=== PATIENT | female | born 1955 | race Caucasian/White ===

== ENCOUNTER 2024-07-31 20:39 | Observation (INO) | payer MEDICARE ==
[2024-07-31 21:24] LABS: Basophils % (A) 1 %; Eosinophils # (A) 0.2 k/uL (0-0.7); Eosinophils % (A) 3 %; HCT 46.3 % (34.0-46.0); HGB 14.5 gm/dL (11.4-16.0); Lymphocytes # (A) 2.3 k/uL (1.0-4.8); Lymphocytes % (A) 36 %; MCH 30.5 pg (25.0-35.0); MCHC 31.3 g/dL (31.0-37.0); MCV 97.3 fL (80.0-100.0); Mean Platelet Volume 8.8; Monocytes # (A) 0.4 k/uL (0-1.0); Monocytes % (A) 7 %; Neutrophils # (A) 3.3 k/uL (1.3-7.7); Neutrophils % (A) 52 %; Platelet Count 209 k/uL (150-450); RBC 4.76 m/uL (3.80-5.40); RDW 13.4 % (11.5-15.5); WBC 6.3 k/uL (3.8-10.6)
[2024-07-31 21:34] LABS: ALT 20 U/L (4-34); AST 27 U/L (14-36); African American GFR (CKD) >90 (>60 ml/min/1.73 sqM); Albumin 3.9 g/dL (3.5-5.0); Alkaline Phosphatase 93 U/L (38-126); Anion Gap 7 mmol/L; Blood Urea Nitrogen 26 mg/dL (7-17); Calcium 9.8 mg/dL (8.4-10.2); Carbon Dioxide 27 mmol/L (22-30); Chloride 103 mmol/L (98-107); Glucose 78 mg/dL (74-99); Non-African American GFR(CKD) >90 (>60 ml/min/1.73 sqM); Potassium 4.2 mmol/L (3.5-5.1); Sodium 137 mmol/L (137-145); Total Bilirubin 0.6 mg/dL (0.2-1.3); Total Protein 6.8 g/dL (6.3-8.2)
[2024-07-31 21:42] LABS: NT-Pro-B-Type Natriuretic Pept 149 pg/mL
[2024-07-31] MEDS ORDERED: VANCOMYCIN IV PER PHARMACY 1 EACH MISC MISCELLANE PRN (21:43)
[2024-07-31] MEDS: ACETAMINOPHEN TAB 500 MG TAB PO STA (22:04)
[2024-07-31] MEDS: FUROSEMIDE 10 MG/ML 4 ML VIAL IV STA (22:38)
[2024-07-31] MEDS: VANCOMYCIN 1,000 MG in SODIUM CHLORIDE 0.9% 250 ML IVPB ONE (22:58)
--- NOTE | 2024-07-31 23:16 | ED ---
General Adult HPI - General Chief complaint: Extremity Injury, Lower Stated complaint: Cellulitis Time Seen by Provider: 07/31/24 20:52 Source: EMS Mode of arrival: EMS - History of Present Illness Initial comments: 68-year-old female presenting with chief complaint of infection to the lower extremities. Patient reports that for the last 5 days she has had increased redness, tenderness, and swelling to the bilateral lower extremities. She has an in-home patient educator who is supposed to be seeing her weekly. She reports that she was recently on 2 antibiotics for osteomyelitis. She has not seen her patient educator since finishing the antibiotics, family was concerned so they brought her to the ER today. No fever. No vomiting. No discharge or weeping. The right foot is particularly painful. - Related Data Allergies Allergy/AdvReac Type Severity Reaction Status Date / Time Penicillins Allergy Nausea Verified 07/31/24 20:50 Review of Systems ROS Statement: Those systems with pertinent positive or pertinent negative responses have been documented in the HPI. ROS Other: All systems not noted in ROS Statement are negative. Past Medical History Past Medical History: Hypertension, Osteoarthritis (OA), Rheumatoid Arthritis (RA) History of Any Multi-Drug Resistant Organisms: None Reported Past Surgical History: Appendectomy Past Psychological History: No Psychological Hx Reported Smoking Status: Current every day smoker Past Alcohol Use History: None Reported Past Drug Use History: None Reported General Exam General appearance: alert, in no apparent distress Head exam: Present: atraumatic, normocephalic, normal inspection Eye exam: Present: normal appearance, EOMI Neck exam: Present: normal inspection. Absent: meningismus Respiratory exam: Present: normal lung sounds bilaterally. Absent: respiratory distress, wheezes, rales, rhonchi, stridor Cardiovascular Exam: Present: regular rate, normal rhythm, normal heart sounds. Absent: systolic murmur, diastolic murmur, rubs, gallop, clicks Extremities exam: Present: pedal edema, other (Erythema swelling and tenderness to the bilateral lower extremities) Neurological exam: Present: alert, oriented X3 Psychiatric exam: Present: normal affect, normal mood Course Vital Signs 07/31/24 07/31/24 07/31/24 20:44 21:58 22:30 Temperature 98.2 F Pulse Rate 96 98 97 Respiratory 20 20 19 Rate Blood Pressure 157/89 167/89 142/79 O2 Sat by Pulse 98 97 Oximetry Medical Decision Making - Medical Decision Making Was pt. sent in by a medical professional or institution (, [facility], YOUTH PROGRAM DIRECTOR, urgent care, hospital, or group home...) When possible be specific @ -No Did you speak to anyone other than the patient for history (EMS, parent, family, police, friend...)? What history was obtained from this source @ -No Did you review nursing and triage notes (agree or disagree)? Why? @ -I reviewed and agree with nursing and triage notes Were old charts reviewed (outside hosp., previous admission, EMS record, old EKG, old radiological studies, urgent care reports/EKG's, group home records)? Report findings @ -No old charts were reviewed Differential Diagnosis (chest pain, altered mental status, abdominal pain women, abdominal pain men, vaginal bleeding, weakness, fever, dyspnea, syncope, headache, dizziness, GI bleed, back pain, seizure, CVA, palpatations, mental health, musculoskeletal)? @ -Differential includes cellulitis, allergic reaction, rubor, not an all- inclusive list EKG interpreted by me (3pts min.). @ -As above X-rays interpreted by me (1pt min.). @ -X-rays of the feet show severe dorsal soft tissue edema and severe osteo penia CT interpreted by me (1pt min.). @ -None done U/S interpreted by me (1pt. min.). @ -None done What testing was considered but not performed or refused? (CT, X-rays, U/S, labs)? Why? @ -None What meds were considered but not given or refused? Why? @ -None Did you discuss the management of the patient with other professionals (professionals i.e. , [facility], YOUTH PROGRAM DIRECTOR, lab, RT, psych nurse, social worker aide, attorney lawyer, teacher, transit police officer, test case developer)? Give summary @ -Spoke with the [facility] provider on-call who accepts admission Was smoking cessation discussed for >3mins.? @ -No Was critical care preformed (if so, how long)? @ -No Were there social determinants of health that impacted care today? How? (Homelessness, low income, unemployed, alcoholism, drug addiction, transportation, low edu. Level, literacy, decrease access to med. care, fpc, rehab)? @ -No Was there de-escalation of care discussed even if they declined (Discuss DNR or withdrawal of care, Hospice)? DNR status @ -No What co-morbidities impacted this encounter? (DM, HTN, Smoking, COPD, CAD, Cancer, CVA, ARF, Chemo, Hep., AIDS, mental health diagnosis, sleep apnea, morbid obesity)? @ -None Was patient admitted / discharged? Hospital course, mention meds given and route, prescriptions, significant lab abnormalities, going to OR and other pertinent info. @ -68-year-old female presenting chief complaint of redness tenderness and swelling of the lower extremities. This is worse on the left but present in both extremities. She has palpable pulses bilaterally. Severe pitting edema. No chest pain or difficulty breathing. No leukocytosis or anemia. BNP is 149. Foot x-ray shows soft tissue edema and osteopenia. Patient is started on vancomycin. She is also given a dose of Lasix for her edema. She will be admitted. Patient agreeable with this plan. I discussed this case with my attending Dr. Saleem Undiagnosed new problem with uncertain prognosis? @ -No Drug Therapy requiring intensive monitoring for toxicity (Heparin, Nitro, Insulin, Cardizem)? @ -No Were any procedures done? @ -No Diagnosis/symptom? @ -Cellulitis Acute, or Chronic, or Acute on Chronic? @ -Acute Uncomplicated (without systemic symptoms) or Complicated (systemic symptoms)? @ -Complicated Side effects of treatment? @ -No Exacerbation, Progression, or Severe Exacerbation? @ -No Poses a threat to life or bodily function? How? (Chest pain, [place], [place], pneumonia, PE, COPD, DKA, ARF, appy, cholecystitis, CVA, Diverticulitis, Homicidal, Suicidal, threat to staff... and all critical care pts) @ -Yes - Lab Data Result diagrams: 07/31/24 20:54 07/31/24 20:54 Lab Results 07/31/24 07/31/24 07/31/24 Range/Units 20:54 20:54 20:54 WBC 6.3 (3.8-10.6) k/uL RBC 4.76 (3.80-5.40) m/uL Hgb 14.5 (11.4-16.0) gm/dL Hct 46.3 H (34.0-46.0) % MCV 97.3 (80.0-100.0) fL MCH 30.5 (25.0-35.0) pg MCHC 31.3 (31.0-37.0) g/dL RDW 13.4 (11.5-15.5) % Plt Count 209 (150-450) k/uL MPV 8.8 Neutrophils % 52 % Lymphocytes % 36 % Monocytes % 7 % Eosinophils % 3 % Basophils % 1 % Neutrophils # 3.3 (1.3-7.7) k/uL Lymphocytes # 2.3 (1.0-4.8) k/uL Monocytes # 0.4 (0-1.0) k/uL Eosinophils # 0.2 (0-0.7) k/uL Basophils # 0.0 (0-0.2) k/uL Sodium 137 (137-145) mmol/L Potassium 4.2 (3.5-5.1) mmol/L Chloride 103 (98-107) mmol/L Carbon Dioxide 27 (22-30) mmol/L Anion Gap 7 mmol/L BUN 26 H (7-17) mg/dL Creatinine 0.64 (0.52-1.04) mg/dL Est GFR (CKD-EPI)AfAm >90 (>60 ml/min/1.73 sqM) Est GFR (CKD-EPI)NonAf >90 (>60 ml/min/1.73 sqM) Glucose 78 (74-99) mg/dL Plasma Lactic Acid Artur 1.0 (0.7-2.0) mmol/L Calcium 9.8 (8.4-10.2) mg/dL Total Bilirubin 0.6 (0.2-1.3) mg/dL AST 27 (14-36) U/L ALT 20 (4-34) U/L Alkaline Phosphatase 93 (38-126) U/L NT-Pro-B Natriuret Pep 149 pg/mL Total Protein 6.8 (6.3-8.2) g/dL Albumin 3.9 (3.5-5.0) g/dL Disposition Clinical Impression: Cellulitis Disposition: ADMITTED IP TO THIS [facility] Condition: Fair Referrals: Nonstaff,Physician [Primary Care Provider] - 1-2 days Time of Disposition: 23:50
--- NOTE | 2024-07-31 23:42 | XR ---
EXAM: XR Bilateral Feet Complete, 3 or More Views CLINICAL HISTORY: Brought in by EMS for cellulitis - bilateral lower extremity swelling and redness x5 days AOx4 - ambulates with walker TECHNIQUE: Frontal, lateral and oblique views of the bilateral feet. COMPARISON: No relevant prior studies available. FINDINGS: Bones/joints: Severe osteopenia. If there is concern for acute osteomyelitis consider MRI. No acute fracture. Midfoot degenerative changes. Soft tissues: Severe dorsal soft tissue edema. IMPRESSION: 1. Severe dorsal soft tissue edema. 2. Severe osteopenia. If there is concern for acute osteomyelitis consider MRI.
[2024-07-31] MEDS ORDERED: ACETAMINOPHEN TAB 325 MG TAB PO PRN (23:46)
[2024-07-31] MEDS ORDERED: NALOXONE 0.4 MG/ML 1 ML VIAL IV PRN (23:46)
[2024-08-01] MEDS: SODIUM CHLORIDE 0.9% 1,000 ML IV SCH (00:25)
--- NOTE | 2024-08-01 10:47 | US ---
EXAMINATION TYPE: US venous doppler duplex LE DATE OF EXAM: 08/01/2024 10:36 AM COMPARISON: NONE CLINICAL INDICATION: Female, 68 years old with history of Bilateral lower extremity swelling, redness ; Bilateral leg pain, redness/ Pt states no known prior DVT, Pain TECHNIQUE: The lower extremity deep venous system is examined utilizing real time linear array sonog corinna with graded compression, color doppler sonography, and spectral doppler. SIDE PERFORMED: Bilateral FINDINGS: VESSELS IMAGED: Common Femoral Vein Deep Femoral Vein Greater Saphenous Vein * Femoral Vein Popliteal Vein Small Saphenous Vein * Proximal Calf Veins (* superficial vessels) Right Leg: Positive for DVT, proximal femoral vein, through popliteal vein, . Pt unable to tolera te compressions within right groin Left Leg: Positive for DVT, partial flow and compression from EIV to distal femoral vein , Color Dop pler imaging shows patency of the vessels. Pt unable to tolerate compressions with left groin IMPRESSION: Suboptimal study , at least partial occlusive age indeterminate DVT is present bilaterall y. Acute DVT particularly in the right leg cannot be excluded. Appropriate clinical management advise [facility], , 08/01/2024 10:45 AM
[2024-08-01] MEDS: VANCOMYCIN 750 MG in SODIUM CHLORIDE 0.9% 250 ML IVPB SCH (11:47)
[2024-08-01] MEDS: HYDROcodone/APAP 5-325MG 1 EACH TAB PO PRN (12:07)
[2024-08-01] MEDS: Apixaban Initiation Dose--VTE 5 MG TAB PO SCH (13:36)
[2024-08-01] MEDS: NYSTATIN 100,000 UNIT/GM POWD 15 GM TOPICAL SCH (13:36)
[2024-08-01 13:41] VITALS: BP 144/85; PULSE 86; RESP 19; TEMP 98
[2024-08-01] MEDS: CEPHALEXIN 500 MG CAP PO SCH (13:54)
[2024-08-01] MEDS: APIXABAN 5 MG TAB PO SCH (16:23)
--- NOTE | 2024-08-01 19:24 | P.HPIM ---
History of Present Illness H&P Date: 08/01/24 This is a pleasant 68-year-old female who presented to the emergency department with bilateral lower extremity pain and swelling and redness with concerns of possible infection. Patient reports she sees podiatry outpatient that comes to the home as she has chronic right foot drop and also ongoing lower extremity swelling issues. Patient does take diuretics on an outpatient basis. Patient follows with nurse practitioner Ramez in the outpatient setting with a past medical history of hypertension, osteoarthritis, rheumatoid arthritis. Patient reports she smokes about a half a pack a day denies alcohol use or illicit in his wheelchair bound mostly. Patient reports has been having increasing redness and swelling although the pain became too intense and came here for further evaluation. Patient was started on antibiotics in the form of vancomycin and admitted for concerns of cellulitis. On exam patient has redness of bilateral lower extremities with some swelling noted that appears chronic and intense pain especially of the right lower extremity. Venous Dopplers of bilateral lower extremities obtained noting to have bilateral DVTs. Patient with no previous history of DVTs noted. Patient is high risk and will be continued on Eliquis and verified coverage. Patient also with infectious disease on consult with concerns of cellulitis. Vancomycin discontinued and patient started on cefazolin. REVIEW OF SYSTEMS: CONSTITUTIONAL: No fever, no malaise, no fatigue. HEENT: No recent visual problems or hearing problems. Denied any sore throat. CARDIOVASCULAR: No chest pain, orthopnea, PND, no palpitations, no syncope. PULMONARY: No shortness of breath, no cough, no hemoptysis. GASTROINTESTINAL: No diarrhea, no nausea, no vomiting, no abdominal pain. NEUROLOGICAL: No headaches, no weakness, no numbness. HEMATOLOGICAL: Denies any bleeding or petechiae. GENITOURINARY: Denies any burning micturition, frequency, or urgency. MUSCULOSKELETAL/RHEUMATOLOGICAL: Denies any joint pain, reports significant bilateral lower extremity swelling with redness and pain ENDOCRINE: Denies any polyuria or polydipsia. The rest of the 14-point review of systems is negative. PHYSICAL EXAMINATION: GENERAL: The patient is alert and oriented x3, not in any acute distress. Well developed, well nourished. Elderly appearing HEENT: Pupils are round and equally reacting to light. EOMI. No scleral icterus. No conjunctival pallor. Normocephalic, atraumatic. No pharyngeal erythema. No thyromegaly. CARDIOVASCULAR: S1 and S2 present. No murmurs, rubs, or gallops. PULMONARY: Chest is clear to auscultation, no wheezing or crackles. ABDOMEN: Soft, nontender, nondistended, normoactive bowel sounds. No palpable organomegaly. MUSCULOSKELETAL: No joint swelling or deformity. EXTREMITIES: No cyanosis, clubbing, or pedal edema. Bilateral lower extremity redness and swelling, nonpitting, skin intact, multiple toenail abnormalities noted on all 10 toes NEUROLOGICAL: Gross neurological examination did not reveal any focal deficits. Diffusely weak, mostly wheelchair-bound SKIN: No rashes. Assessment: Bilateral lower extremity pain with redness and swelling, concerns for possible acute cellulitis present on admission Redness and pain in bilateral lower extremities secondary to bilateral DVTs noted on imaging History of hypertension History of osteoarthritis History of rheumatoid arthritis Continued ongoing nicotine dependence GI prophylaxis DVT prophylaxis Full code Plan: Patient was admitted with concerns of cellulitis and infectious disease placed on consult and vancomycin was started. Vancomycin discontinued and patient started on cefazolin per ID and will continue on oral Keflex outpatient as patient cellulitis is very mild Concerning for redness and swelling and sedentary lifestyle, venous Dopplers of bilateral lower extremities obtained and noted to have right leg showing proximal femoral vein through popliteal vein positive DVT and left leg showing partial flow and compression from EIV to distal femoral vein and patient with extreme pain and unable to tolerate compressions in the groin for further evaluation. Patient will be started on Eliquis and was verified coverage per social work and prescription was sent. Patient to follow-up with hematology oncology outpatient and may likely require lifelong anticoagulation given mostly wheelchair-bound. Patient will continue a short course of oral Keflex on discharge and has been instructed to follow-up with primary care provider this week The impression and plan of care has been dictated by Mary Jansen Nurse Practitioner as directed. Dr. Chino MD I have performed a history and examination and MDM of this patient, discussed the same with the dictator, and agree with the dictator's assessment and plan as written ,documented as a scribe. Based on total visit time, I have performed more than 50% of the visit. Past Medical History Past Medical History: Hypertension, Osteoarthritis (OA), Rheumatoid Arthritis ( RA) Additional Past Medical History / Comment(s): Current smoker History of Any Multi-Drug Resistant Organisms: None Reported Past Surgical History: Appendectomy, Section Past Anesthesia/Blood Transfusion Reactions: No Reported Reaction Past Psychological History: No Psychological Hx Reported Smoking Status: Current every day smoker Past Alcohol Use History: None Reported Past Drug Use History: None Reported Medications and Allergies Home Medications Medication Instructions Recorded Confirmed Type Acetaminophen Tab [Tylenol] 650 mg PO Q6HR PRN tab 08/01/24 Rx Apixaban [Eliquis Starter Pack 5 - 10 mg PO DIRECTED 30 Days 08/01/24 Rx (for VTE)] #1 each Bumetanide [BUMEX] 0.5 mg PO DAILY 08/01/24 08/01/24 History Cephalexin [Keflex] 500 mg PO Q8HR 5 Days #15 cap 08/01/24 Rx Folic Acid 1 mg PO DAILY 08/01/24 08/01/24 History HYDROcodone/APAP 5-325MG [[place] 1 each PO Q4HR PRN #6 tab 08/01/24 Rx 5-325] Mupirocin 2% Oint [Bactroban 2% 1 applic TOPICAL DIRECTED PRN 08/01/24 08/01/24 History Oint] Nystatin 100,000 Unit/gm Powd 1 applic TOPICAL BID each 08/01/24 Rx [Mycostatin Powder] Pantoprazole [Protonix] 40 mg PO DAILY 08/01/24 08/01/24 History Tolterodine ER [Detrol LA] 4 mg PO DAILY 08/01/24 08/01/24 History carvediloL [Coreg] 3.125 mg PO BID 08/01/24 08/01/24 History Allergies Allergy/AdvReac Type Severity Reaction Status Date / Time Penicillins AdvReac Nausea Verified 08/01/24 09:19 Physical Exam Vitals: Vital Signs Temp Pulse Pulse Resp BP BP Pulse Ox 08/01/24 05:55 97.8 F 89 16 116/77 99 08/01/24 05:19 95 16 109/78 95 08/01/24 04:31 91 16 118/79 95 08/01/24 02:03 98.4 F 102 H 19 124/80 96 07/31/24 22:30 97 19 142/79 97 07/31/24 21:58 98 20 167/89 07/31/24 20:44 98.2 F 96 20 157/89 98 Intake and Output 07/31/24 08/01/24 08/01/24 22:59 06:59 14:59 Output Total 1000 Balance -1000 Output: Urine 1000 Other: Voiding Method Diaper External Catheter Weight 49.895 kg 49.895 kg Results CBC & Chem 7: 07/31/24 20:54 07/31/24 20:54 Labs: Abnormal Lab Results - Last 24 Hours (Table) 07/31/24 07/31/24 Range/Units 20:54 20:54 Hct 46.3 H (34.0-46.0) % BUN 26 H (7-17) mg/dL Thrombosis Risk Factor Assmnt - Choose All That Apply Any of the Below Risk Factors Present?: Yes Each Factor Represents 1 point: Swollen legs (current) Other Risk Factors: Yes Each Risk Factor Represents 2 Points: Age 61-74 years Thrombosis Risk Factor Assessment Total Risk Factor Score: 3 Thrombosis Risk Factor Assessment Level: Moderate Risk
--- NOTE | 2024-08-01 19:29 | P.DS ---
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 Patient will follow-up with Dr. Paul in the outpatient setting upon discharge. Patient is to continue with Eliquis 10 mg twice daily for 1 week and then titrate down to 5 mg twice daily thereafter. Recommend outpatient follow- up with hematology as scheduled. Patient will also continue on oral Keflex 3 times daily for a 5-day course. Total time taken is greater than 35 minutes. Hospital course This is a pleasant 68-year-old female who presented to the emergency department with bilateral lower extremity pain and swelling and redness with concerns of possible infection. Patient reports she sees podiatry outpatient that comes to the home as she has chronic right foot drop and also ongoing lower extremity swelling issues. Patient does take diuretics on an outpatient basis. Patient follows with nurse practitioner Ramez in the outpatient setting with a past medical history of hypertension, osteoarthritis, rheumatoid arthritis. Patient reports she smokes about a half a pack a day denies alcohol use or illicit in his wheelchair bound mostly. Patient reports has been having increasing redness and swelling although the pain became too intense and came here for further evaluation. Patient was started on antibiotics in the form of vancomycin and admitted for concerns of cellulitis. On exam patient has redness of bilateral lower extremities with some swelling noted that appears chronic and intense pain especially of the right lower extremity. Venous Dopplers of bilateral lower extremities obtained noting to have bilateral DVTs. Patient with no previous history of DVTs noted. Patient is high risk and will be continued on Eliquis and verified coverage. Patient also with infectious disease on consult with concerns of cellulitis. Vancomycin discontinued and patient started on cefazolin. Patient was evaluated by physical therapy and patient reports she had home care with rehab at her home and completed this and does not want any further rehab. Patient will be going home with her son. Patient evaluated by infectious disease with concerns of questionable starts of cellulitis present on admission of bilateral lower extremities, more so on the left we will continue Keflex 3 times daily for the next 5 days. Recommend close outpatient follow-up with primary assistant food service manager as well as primary care provider. Please refer to other consultation notes for further HPI. Patient denies any chest pain, shortness of breath, or palpitations. Patient is afebrile and white count is normal. PHYSICAL EXAMINATION: GENERAL: The patient is alert and oriented x3, not in any acute distress. Well developed, well nourished. Elderly appearing HEENT: Pupils are round and equally reacting to light. EOMI. No scleral icterus. No conjunctival pallor. Normocephalic, atraumatic. No pharyngeal erythema. No thyromegaly. CARDIOVASCULAR: S1 and S2 present. No murmurs, rubs, or gallops. PULMONARY: Chest is clear to auscultation, no wheezing or crackles. ABDOMEN: Soft, nontender, nondistended, normoactive bowel sounds. No palpable organomegaly. MUSCULOSKELETAL: No joint swelling or deformity. EXTREMITIES: No cyanosis, clubbing, or pedal edema. Bilateral lower extremity redness and swelling, nonpitting, skin intact, multiple toenail abnormalities noted on all 10 toes NEUROLOGICAL: Gross neurological examination did not reveal any focal deficits. Diffusely weak, mostly wheelchair-bound SKIN: No rashes. Physical exam: Please refer to medication reconciliation sheet for a list of medications. The impression and plan of care has been dictated by Mary Jansen, Nurse Practitioner as directed. Dr. Chino MD I have performed a history and examination and MDM of this patient, discussed the same with the dictator, and agree with the dictator's assessment and plan as written ,documented as a scribe. Based on total visit time, I have performed more than 50% of the visit. Patient Condition at Discharge: Fair Plan - Discharge Summary Discharge Rx Participant: No New Discharge Prescriptions: New Cephalexin [Keflex] 500 mg PO Q8HR 5 Days #15 cap Nystatin 100,000 Unit/gm Powd [Mycostatin Powder] 1 applic TOPICAL BID each Apixaban [Eliquis Starter Pack (for VTE)] 5 - 10 mg PO DIRECTED 30 Days #1 each HYDROcodone/APAP 5-325MG [[place] 5-325] 1 each PO Q4HR PRN #6 tab PRN Reason: Moderate Pain (Scale 4 To 6) Acetaminophen Tab [Tylenol] 650 mg PO Q6HR PRN tab PRN Reason: Mild Pain Or Fever > 100.5 Continue Bumetanide [BUMEX] 0.5 mg PO DAILY carvediloL [Coreg] 3.125 mg PO BID Folic Acid 1 mg PO DAILY Mupirocin 2% Oint [Bactroban 2% Oint] 1 applic TOPICAL DIRECTED PRN PRN Reason: dressing changes Pantoprazole [Protonix] 40 mg PO DAILY Tolterodine ER [Detrol LA] 4 mg PO DAILY Discontinued Ciprofloxacin HCl [Cipro] 500 mg PO Q12HR clindamycin HCL 300 mg PO Q12HR Discharge Medication List Acetaminophen Tab [Tylenol] 650 mg PO Q6HR PRN tab 08/01/24 [Rx] Apixaban [Eliquis Starter Pack (for VTE)] 5 - 10 mg PO DIRECTED 30 Days #1 each 08/01/24 [Rx] Bumetanide [BUMEX] 0.5 mg PO DAILY 08/01/24 [History] Cephalexin [Keflex] 500 mg PO Q8HR 5 Days #15 cap 08/01/24 [Rx] Folic Acid 1 mg PO DAILY 08/01/24 [History] HYDROcodone/APAP 5-325MG [[place] 5-325] 1 each PO Q4HR PRN #6 tab 08/01/24 [Rx] Mupirocin 2% Oint [Bactroban 2% Oint] 1 applic TOPICAL DIRECTED PRN 08/01/24 [History] Nystatin 100,000 Unit/gm Powd [Mycostatin Powder] 1 applic TOPICAL BID each 08/01/24 [Rx] Pantoprazole [Protonix] 40 mg PO DAILY 08/01/24 [History] Tolterodine ER [Detrol LA] 4 mg PO DAILY 08/01/24 [History] carvediloL [Coreg] 3.125 mg PO BID 08/01/24 [History] Follow up Appointment(s)/Referral(s): Saurabh Humphrey MD [STAFF PHYSICIAN] - 1 Week (Hematology r/t blood clot. Please call to schedule a follow up appointment-office closed at time of discharge. ) Nonstaff,Physician [Primary Care Provider] - 1 Week (Please see below) Patient Instructions/Handouts: Cephalexin (By mouth), Hydrocodone/Acetaminophen (By mouth), Nystatin (On the skin), Apixaban (By mouth), Cellulitis (GEN), Deep Vein Thrombosis (DC), Edema (DC) Activity/Diet/Wound Care/Special Instructions: Patient to follow up with Kristopher Paul NP with Home Health Services - 1 - please call to set up a follow up appointment Elevate lower extremities while at rest Continue with medications as prescribed Continue with Eliquis 10 mg twice daily for 1 week and then 5 mg twice daily thereafter Follow-up with primary care provider on discharge Discharge Disposition: HOME SELF-CARE
[2024-08-02] MEDS ORDERED: VANCOMYCIN TROUGH DUE 1 EACH MISC MISCELLANE ONE (10:00)
== END 2024-08-01 17:47 | disposition home or self-care (01) ==
LOC: EC 20:39 → 6NMEDSUR 23:47 → 5NMEDONC 08-01 05:10
PROVIDERS: ADMIT Hospitalist; ATTEND Hospitalist
DX: I82.413 Acute embolism and thrombosis of femoral vein, bilateral (principal); I10 Essential (primary) hypertension; M19.90 Unspecified osteoarthritis, unspecified site; M06.9 Rheumatoid arthritis, unspecified; F17.200 Nicotine dependence, unspecified, uncomplicated; Z79.899 Other long term (current) drug therapy; Z88.0 Allergy status to penicillin
CPT/HCPCS: 96365; 96366; 96375; 99285; 36415; 83880; 80053; 83605; 85025; 73630; 93970; G0378 ×3; J3370; J1940